=== PATIENT | male | born 1970 | race Caucasian/White ===

== ENCOUNTER 2020-11-28 09:57 | Emergency (ER) | payer OTHER ==
[2020-11-28 10:41] LABS: HEMOGLOBIN 15.7 gm/dl (14.0-17.5); RED BLOOD COUNT 4.92 M/UL (4.20-5.50); WHITE BLOOD COUNT 11.5 K/UL (4.5-11.0)
[2020-11-28 11:07] LABS: BUN/CREATININE RATIO 15 (0-10)
== END 2020-11-28 12:52 | disposition home or self-care (01) ==
LOC: ER1 09:57
PROVIDERS: Emergency Medicine
DX: R19.7 Diarrhea, unspecified (principal); R00.2 Palpitations; R11.0 Nausea; I10 Essential (primary) hypertension; Z20.822 Contact with and (suspected) exposure to COVID-19
CPT/HCPCS: 71045; 80053; 81001; 82550; 82553; 83605; 83874; 84439; 84443; 84484; 85025; 85379; 87040; 93005; 96374; 99285; J2405; J7030; U0002